=== PATIENT | female | born 1955 | race American Indian/Alaskan Native ===

== ENCOUNTER 2017-09-02 10:05 | Outpatient (CLI) | payer OTHER ==
--- NOTE | 2017-09-04 15:38 | Mammography Report ---
BILATERAL DIGITAL SCREENING MAMMOGRAM with CAD: 09/02/17 10:05:00 CLINICAL: Routine screening.History of bilateral reduction mammoplasty. COMPARISON:None available. She supposedly had a mammogram at [facility] 2 years ago. FINDINGS: The breasts are almost entirely fatty.A few asymmetric right retroareolar fibroglandular densities. Bilateral benign calcifications. No mass, architectural distortion or suspicious calcifications. IMPRESSION: No mammographic evidence of malignancy. BI-RADS CATEGORY: 2 -- Benign RECOMMENDATION: Routine mammographic screening in one year. COMMENT: Patient follow-up letters are generated by our [employer] application.
== END 2017-09-02 10:06 | disposition home or self-care (01) ==
LOC: MAMMO 10:05
PROVIDERS: ATTEND Internal Medicine
DX: Z12.31 Encounter for screening mammogram for malignant neoplasm of breast (principal)
CPT/HCPCS: 77067